=== PATIENT | male | born 1980 | race Caucasian/White ===

== ENCOUNTER 2018-10-22 09:20 | Emergency (ER) | payer BC, OTHER ==
--- NOTE | 2018-10-22 11:14 | EDM.PDOC ---
ED HPI GENERAL MEDICAL PROBLEM - General Chief Complaint: Lower Extremity Injury/Pain Stated Complaint: POSSIBLE DVT IN CALF Time Seen by Provider: 10/22/18 09:50 Source of Information: Reports: Patient History Limitations: Reports: No Limitations - History of Present Illness INITIAL COMMENTS - FREE TEXT/NARRATIVE: pt had a blow to the calf of his left leg about 2 weeks ago. It got better and now he has slight swelling and increased pain in the lower left calf. He has slight pain when he walks on the leg. Onset: Gradual, Other ( Last 2-3 days. ) Duration: Hour(s): Location: Reports: Lower Extremity, Left Associated Symptoms: Reports: No Other Symptoms Left Leg Pain Score (Numeric/FACES): 6 - Related Data Allergies Allergy/AdvReac Type Severity Reaction Status Date / Time No Known Allergies Allergy Verified 10/22/18 10:05 Home Meds: Home Meds NK [No Known Home Meds] 10/22/18 [History] Past Medical History Hematologic History: Reports: Other (See Below) Other Hematologic History: Factor 5 - Past Surgical History Neurological Surgical History: Reports: Discectomy Social & Family History - Tobacco Use Smoking Status *Q: Never Smoker - Recreational Drug Use Recreational Drug Use: No Review of Systems - Review of Systems Review Of Systems: See Below Constitutional: Reports: No Symptoms Eyes: Reports: No Symptoms Ears: Reports: No Symptoms Nose: Reports: No Symptoms Mouth/Throat: Reports: No Symptoms Respiratory: Reports: No Symptoms Cardiovascular: Reports: No Symptoms GI/Abdominal: Reports: No Symptoms Genitourinary: Reports: No Symptoms Musculoskeletal: Reports: Other ( Pain in the calf of the left leg. He has had slight swelling. ) Skin: Reports: No Symptoms ED EXAM, GENERAL - Physical Exam Exam: See Below Free Text/Narrative:: Pt arrived with a history of slight swelling and tenderness in the lower calf of the left leg. He had a contusion to the leg about 2 weeks ago. He has slight pain in the leg with walking. Exam Limited By: No Limitations General Appearance: Alert, Mild Distress Ears: Normal TMs Nose: Normal Inspection Throat/Mouth: Normal Inspection Head: Atraumatic Neck: Normal Inspection Extremities: Other ( Pt has definite tenderness in the calf of the left leg. He has mild swelling . .) Neurological: Alert, Oriented Course - Vital Signs Last Recorded V/S: Last Vital Signs Temp 35.7 C 10/22/18 09:58 Pulse 70 10/22/18 09:58 Resp 16 10/22/18 09:58 BP 123/85 10/22/18 09:58 Pulse Ox 99 10/22/18 09:58 - Orders/Labs/Meds Orders: Active Orders 24 hr Category Date Time Status VL Duplex Lwr Ext Veins Ltd Lt [US] Stat Exams 10/22/18 10:02 Ordered - Re-Assessments/Exams Free Text/Narrative Re-Assessment/Exam: 10/22/18 11:19 pt had a US of the left leg. This proved to be neg. Departure - Departure Time of Disposition: 11:12 Disposition: Home, Self-Care 01 Condition: Fair Clinical Impression: Muscle contusion - Discharge Information Instructions: Contusion Referrals: PCP,None [Primary Care Provider] - Forms: ED Department Discharge Care Plan Goals: moist warm packs to the calf, motrin 600mg tid for the next 5-6 dasys as a antiinflamitory. . RTC if on going problems. - My Orders Last 24 Hours: My Active Orders 10/22/18 10:02 VL Duplex Lwr Ext Veins Ltd Lt [US] Stat - Assessment/Plan Last 24 Hours: My Active Orders 10/22/18 10:02 VL Duplex Lwr Ext Veins Ltd Lt [US] Stat
--- NOTE | 2018-10-22 11:47 | CRLUS ---
INDICATION: Left lower extremity pain and swelling. TECHNIQUE: Ultrasound venous duplex lower left extremity. Compression venous exam was performed using yu-scale, color Doppler, and spectral Doppler analysis. COMPARISON: No comparison. FINDINGS: Sonographic imaging demonstrates the left common femoral, deep femoral, superficial femoral, popliteal, posterior tibial and greater saphenous and the contralateral right common femoral veins to be fully compressible with normal color Doppler blood flow and augmentation. IMPRESSION: No sign of deep venous thrombosis. Dictated by Kem Miller MD @ 10/22/2018 11:46:36 AM Dictated by: Kem Miller MD @ 10/22/2018 11:46:42 (Electronically Signed)
== END 2018-10-22 11:26 | disposition home or self-care (01) ==
LOC: JP.ED 09:20
DX: S80.12XA Contusion of left lower leg, initial encounter (principal); W22.8XXA Striking against or struck by other objects, initial encounter
CPT/HCPCS: 93971-LT; 99284-25

== ENCOUNTER 2019-02-13 12:15 | Emergency (ER) | payer BC, OTHER ==
[2019-02-13] MEDS ORDERED: Diphtheria,Pertussis(Acell),Tetanus Vaccine 0.5 ML SDV IM ONE (12:48)
[2019-02-13] MEDS ORDERED: Bupivacaine 0.5% 50 ML MDV INFILT ONE (12:48)
--- NOTE | 2019-02-13 12:49 | EDM.PDOC ---
ED HPI GENERAL MEDICAL PROBLEM - General Chief Complaint: Laceration Stated Complaint: LACERATION ON LT PALM Time Seen by Provider: 02/13/19 12:30 Source of Information: Reports: Patient History Limitations: Reports: No Limitations - History of Present Illness INITIAL COMMENTS - FREE TEXT/NARRATIVE: 39-year-old gentleman presents 1 hour after sustaining a laceration on his left hand. He is right-hand dominant. Patient was performing drywalling and mud. Patient used his left hand to smooth out some mud. Unfortunately, cut on the metal meshing resulting in a laceration of the palmar aspect of his left hand. Patient states it bled right away. He cleansed it with the garden hose and then in the bathroom sink. He had too much bleeding and was too deep to fix with a bandage. He drove himself to the ER for evaluation. Patient states his last tetanus shot was greater than 8 years ago. He denies any recurrent numbness tingling weakness or decreased function or strength of the hand. Slightly - Related Data Allergies Allergy/AdvReac Type Severity Reaction Status Date / Time No Known Allergies Allergy Verified 10/22/18 10:05 Home Meds: Home Meds Cephalexin [Keflex] 500 mg PO TID 5 Days #15 capsule 02/13/19 [Rx] Past Medical History Musculoskeletal History: Reports: Neck Pain, Chronic Hematologic History: Reports: Other (See Below) Other Hematologic History: Factor 5 - Past Surgical History Neurological Surgical History: Reports: Discectomy Social & Family History - Tobacco Use Smoking Status *Q: Never Smoker ED ROS GENERAL - Review of Systems Review Of Systems: ROS reveals no pertinent complaints other than HPI. ED EXAM, SKIN/RASH Exam: See Below Exam Limited By: No Limitations General Appearance: Alert, WD/WN, No Apparent Distress Eye Exam: Bilateral Eye: EOMI, PERRL Head: Atraumatic, Normocephalic Neck: Normal Inspection, Supple, Full Range of Motion Respiratory/Chest: No Respiratory Distress, Lungs Clear, Normal Breath Sounds Cardiovascular: Normal Peripheral Pulses, Regular Rate, Rhythm. No: Systolic Murmur Peripheral Pulses: 4+: Radial (L), Radial (R) Extremities: Normal Inspection, Arm Pain (laceration palm left hand see below) Neurological: Alert, Oriented, CN II-XII Intact, Normal Cognition, Normal Gait, Normal Reflexes, No Motor/Sensory Deficits Psychiatric: Normal Affect, Normal Mood Skin: Warm, Dry Location, Skin: Upper Extremity, Left Associated features: Tenderness (laceration palm of left hand from fortuh MCP crease to mid palm of fourth metacarpel), Swelling ED SKIN PROCEDURES - Laceration/Wound Repair Left Hand Lac/Wound length In cm: 4.0 Appearance: Subcutaneous, Linear, Moderately Contaminated Distal NVT: Neuro & Vascular Intact, No Tendon Injury Anesthetic Type: Local Local Anesthesia - Lidocaine (Xylocaine): 1% Plain Local Anesthetic Volume: Other (10) Skin Prep: Saline, Other (500 cc tap water then 250 cc sterile saline ) Saline Irrigation (cc's): 750 Exploration/Debridement/Repair: Wound Explored, In a Bloodless Field, Explored to Base, Minimal Debridement, Foreign Material Removed, Wound Margins Revised, Other (dry wall mud irrigated to clear water before wound prep ) Closed with: Sutures Suture Size: 4-0 # of Sutures: 11 Suture Type: Nylon, Simple Tetanus Status Addressed: Yes (updated) Course - Vital Signs Last Recorded V/S: Last Vital Signs Temp 36.9 C 02/13/19 12:35 Pulse 77 02/13/19 12:35 Resp 14 02/13/19 12:35 BP 102/67 02/13/19 12:35 Pulse Ox 98 02/13/19 12:35 - Orders/Labs/Meds Orders: Active Orders 24 hr Category Date Time Status Vaccines to be Administered [RC] PER UNIT ROUTINE Care 02/13/19 12:48 Active Meds: Medications Discontinued Medications Generic Name Dose Route Start Last Admin Trade Name Joshua PRN Reason Stop Dose Admin Bupivacaine HCl 50 ml 02/13/19 12:48 Marcaine 0.5% INFILT 02/13/19 12:49 ONETIME ONE Diphtheria/Tetanus/Acell Pertussis 0.5 ml 02/13/19 12:48 02/13/19 13:39 Adacel IM 02/13/19 12:49 0.5 ml .ONCE ONE Administration Lidocaine HCl 5 ml 02/13/19 12:54 02/13/19 14:12 Xylocaine-Mpf 1% INJECT 02/13/19 12:55 5 ml ONETIME ONE Administration Lidocaine HCl 5 ml 02/13/19 13:26 02/13/19 13:41 Xylocaine-Mpf 1% INJECT 06/08/19 13:27 5 ml ONETIME ONE Administration Departure - Departure Time of Disposition: 14:00 Disposition: Home, Self-Care 01 Condition: Good Clinical Impression: Laceration of hand without complication, excluding fingers, Tetanus toxoid vaccination administered at current visit - Discharge Information Prescriptions: Cephalexin [Keflex] 500 mg PO TID 5 Days #15 capsule Instructions: Laceration Care, Adult, [id number], Sutured Wound Care, Easy-to -Read, VIS, Tetanus, Diphtheria, and Pertussis (Tdap) - [facility] [place] (11/01/2014) Referrals: Servando Gaspar MD [Physician] - (3-5 days wound check and 7-10 days for suture removal or as directed. PCP could be alternate if available ) PCP,None [Primary Care Provider] - Forms: ED Department Discharge Additional Instructions: LAC TETANUS 1. KEEP LACERATION DRY AND CLEAN X 48 HOURS, Keflex 500mg TID x 5 days for prevention of infection. 2. AFTER 48 hours CLEANSE WOUND DAILY AND APPLY TOPICAL ANTIBIOTIC OINTMENT. 3. FOLLOW WOUND CARE INFORMATION GIVEN. 4. FOLLOW UP IN Ortho or PCP CLINIC IN 3-5 DAYS FOR Wound check and 7-10 days for SUTURE REMOVAL. 5. Tylenol or Ibuprofen for pain and swelling. 6. Return for repeat evaluation if increase, changes, new or worsen symptoms. Discharge Instructions Laceration (Cut) You were seen today for a laceration (cut). Your provider examined your laceration for any problems such a buried foreign body (like glass, a splinter, or gravel), or injury to blood vessels, tendons, and nerves. Your provider may have also rinsed and/or scrubbed your laceration to help prevent an infection. It may not be possible to find all problems with your laceration on the first visit; occasionally foreign bodies or a tendon injury can go undetected. Your laceration may have been closed in one of several ways: No closure: many wounds will heal just fine without closure. Stitches: regular stitches that require removal. [place]: skin robe are often used in the scalp/head. Wound adhesive (glue): skin glue can be used for certain lacerations and doesnt require removal. Wound strips (aka Butterfly bandages or steri-strips): these are bandages that help to close a wound. Absorbable stitches: dissolving stitches that go away on their own and usually dont require removal. A small percentage of wounds will develop an infection regardless of how well the wound is cared for. Antibiotics are generally not indicated to prevent an infection so are only given for a small number of high-risk wounds. Some lacerations are too high risk to close, and are left open to heal because closure can increase the likelihood that an infection will develop. Remember that all lacerations, no matter how expertly repaired, will cause scarring. We consider many factors, techniques, and materials, in our efforts to provide the best possible cosmetic outcome. Please follow-up as instructed by your emergency provider today. Return to the clinic or Local Emergency Department right away if: You have more redness, swelling, pain, drainage (pus), a bad smell, or red streaking from your laceration as these symptoms could indicate an infection. You have a fever of 100.4F or more. You have bleeding that you cannot stop at home. If your cut starts to bleed , hold pressure on the bleeding area with a clean cloth or put pressure over the bandage. If the bleeding does not stop after using constant pressure for 30 minutes, you should return to the Emergency Department for further treatment. An area past the laceration is cool, pale, or blue compared with the other side, or has a slower return of color when squeezed. Your dressing seems too tight or starts to get uncomfortable or painful. For children, signs of a problem might be irritability or restlessness. You have loss of normal function or use of an area, such as being unable to straighten or bend a finger normally. You have a numb area past the laceration. Return to the Emergency Department or see your regular provider if: The laceration starts to come open. You have something coming out of the cut or a feeling that there is something in the laceration. Your wound will not heal, or keeps breaking open. There can always be glass , wood, dirt or other things in any wound. They will not always show up, even on x-rays. If a wound does not heal, this may be why, and it is important to follow-up with your regular provider. Home Care: Take your dressing off in 12-24 hours, or as instructed by your provider, to check your laceration. Remove the dressing sooner if it seems too tight or painful, or if it is getting numb, tingly, or pale past the dressing. Gently wash your laceration 1-2 times daily with clean water and mild soap. It is okay to shower or run clean water over the laceration, but do not let the laceration soak in water (no swimming). If your laceration was closed with wound adhesive or strips: pat it dry and leave it open to the air. For all other repairs: after you wash your laceration , or at least 2 times a day, apply antibiotic ointment (such as Neosporin or Bacitracin) to the laceration, then cover it with a Band-Aid or gauze. Keep the laceration clean. Wear gloves or other protective clothing if you are around dirt. Follow-up for removal: If your wound was closed with robe or regular stitches, they need to be removed according to the instructions and timeline specified by your provider today. If your wound was closed with absorbable (dissolving) sutures, they should fall out, dissolve, or not be visible in about one week. If they are still visible, then they should be removed according to the instructions and timeline specified by your provider today. Scars: To help minimize scarring: Wear sunscreen over the healed laceration when out in the sun. Massage the area regularly once healed. You may apply Vitamin E to the healed wound. Wait. Scars improve in appearance over months and years. If you were given a prescription for medicine here today, be sure toread all of the information (including the package insert) that comes with your prescription. This will include important information about the medicine, its side effects, and any warnings that you need to know about. The pharmacist who fills the prescription can provide more information and answer questions you may have about the medicine. If you have questions or concerns that the pharmacist cannot address, please call or return to the Emergency Department. Remember that you can always come back to the clinic or go to the Local Emergency Department if you are not able to see your regular provider in the amount of time listed above, if you get any new symptoms, or if there is anything that worries you. TETANUS (LOCKJAW) IMMUNIZATION GENERAL INFORMATION: Tetanus is an acute infectious disease which produces painful tonic spasms of some voluntary muscles. Often the first noticeable sign is stiffness of the jaw (lockjaw). Tetanus shots are indicated for active immunization/protection of children over six years of age and adults. The basic immunization course consists of two doses/injections given at intervals of 4-6 weeks, and followed by a third dose/ injection 6-12 months later. The third dose must be given to consider immunization/retirement protection completed. routine booster dose/injection should be given in ten year intervals throughout life to maintain immunity. GOAL:To prevent tetanus from occurring. TREATMENT/SPECIAL INSTRUCTIONS: 1. r clean minor wounds, a tetanus booster shot is necessary if ten years have elapsed since your last booster. For all other wounds, a booster shot is needed if it has been five or more years since your last booster. 2. A small area of redness and firmness at the site of the Injection (shot) is common, and may last for a few days. 3. If your arm feels stiff and sore, exercise it. You may also apply cold to the injection area for relief of minor discomfort. 4. It is important to keep a record of the date on which you received your Tetanus booster. This is a card for you to record the date of your booster. Cut it out and keep it in your billfold for reference. TETANUS IMMUNIZATION HISTORY DATE DATE DATE - Problem List & Annotations (1) Laceration of hand without complication, excluding fingers SNOMED Code(s): 660210742 Code(s): S61.419A - LACERATION WITHOUT FOREIGN BODY OF UNSP HAND, INIT ENCNTR Status: Acute (2) Tetanus toxoid vaccination administered at current visit SNOMED Code(s): 852650387, 842456055 Code(s): Z23 - ENCOUNTER FOR IMMUNIZATION Status: Acute - My Orders Last 24 Hours: My Active Orders 02/13/19 12:48 Vaccines to be Administered [RC] PER UNIT ROUTINE - Assessment/Plan Last 24 Hours: My Active Orders 02/13/19 12:48 Vaccines to be Administered [RC] PER UNIT ROUTINE Plan: LAC TETANUS 1. KEEP LACERATION DRY AND CLEAN X 48 HOURS, Keflex 500mg TID x 5 days for prevention of infection. 2. AFTER 48 hours CLEANSE WOUND DAILY AND APPLY TOPICAL ANTIBIOTIC OINTMENT. 3. FOLLOW WOUND CARE INFORMATION GIVEN. 4. FOLLOW UP IN Ortho or PCP CLINIC IN 3-5 DAYS FOR Wound check and 7-10 days for SUTURE REMOVAL. 5. Tylenol or Ibuprofen for pain and swelling. 6. Return for repeat evaluation if increase, changes, new or worsen symptoms.
== END 2019-02-13 14:14 | disposition home or self-care (01) ==
LOC: JP.ED 12:15
DX: S61.412A Laceration without foreign body of left hand, initial encounter (principal); Z23 Encounter for immunization; W26.8XXA Contact with other sharp object(s), not elsewhere classified, initial encounter
CPT/HCPCS: 12002; 90471; 90715; 99282; J2001

== ENCOUNTER 2022-06-23 20:15 | Emergency (ER) | payer BC, OTHER ==
[2022-06-23] MEDS ORDERED: Proparacaine 0.5% Ophth Soln 15 ML Bottle EYERT ONE (21:23)
== END 2022-06-23 22:06 | disposition home or self-care (01) ==
LOC: JP.ED 20:15
DX: S05.01XA Injury of conjunctiva and corneal abrasion without foreign body, right eye, initial encounter (principal)
CPT/HCPCS: 99283; A9270